=== PATIENT | female | born 1985 | race American Indian/Alaskan Native ===

== ENCOUNTER 2016-06-28 23:18 | Emergency (ER) | payer MEDICAID ==
[2016-06-29] MEDS ORDERED: MOTRIN PO ONE (00:15)
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
[2016-06-29 03:51] VITALS: BP 127/69
== END 2016-06-29 03:00 | disposition home or self-care (01) ==
LOC: ED 23:18
DX: S46.812A Strain of other muscles, fascia and tendons at shoulder and upper arm level, left arm, initial encounter (principal); V49.59XA Passenger injured in collision with other motor vehicles in traffic accident, initial encounter; W22.12XA Striking against or struck by front passenger side automobile airbag, initial encounter; Y93.89 Activity, other specified; Y99.8 Other external cause status; Y92.488 Other paved roadways as the place of occurrence of the external cause
CPT/HCPCS: 99283

== ENCOUNTER 2017-05-23 14:00 | Emergency (ER) | payer MEDICAID ==
[2017-05-23] MEDS ORDERED: XYLOCAINE 1% 20 mL INFILTRATI ONE (16:53)
--- NOTE | 2017-05-23 17:16 | Emergency Department Report ---
- General Chief complaint: Wound/Laceration Stated complaint: CYST Time Seen by Provider: 05/23/17 16:45 Source: patient Mode of arrival: Ambulatory Limitations: No Limitations - History of Present Illness Initial comments: This is a 31-year-old female nontoxic, well nourished in appearance, no acute signs of distress presents to the ED with c/o of right bartholin cyst x3 days. Patient denies any pus or drainage. Patient denies any fever, chills, headache, nausea, vomiting, chest pain, shortness of breathe, abdominal pain. Patient denies any allergies or PMH. MD complaint: abscess/boil -: days(s) (3) Severity: mild Severity scale (0 -10): 8 Quality: aching Consistency: constant Improves with: none Worsens with: none Context: none Associated symptoms: denies other symptoms Treatments Prior to Arrival: none - Related Data Previous Rx's Medication Instructions Recorded Last Taken Type Ibuprofen [Motrin] 600 mg PO Q8H PRN #30 tablet 06/29/16 Unknown Rx Sulfamethoxazole/Trimethoprim 1 each PO BID #14 tablet 05/23/17 Unknown Rx [Bactrim DS TAB] traMADol [Ultram] 50 mg PO Q6HR PRN #15 tablet 05/23/17 Unknown Rx Allergies Allergy/AdvReac Type Severity Reaction Status Date / Time No Known Allergies Allergy Verified 05/23/17 14:31 Abscess Boil HPI - [facility] Chief Complaint: Wound/Laceration Stated Complaint: CYST Time Seen by Provider: 05/23/17 16:45 Home Medications: Previous Rx's Medication Instructions Recorded Last Taken Type Ibuprofen [Motrin] 600 mg PO Q8H PRN #30 tablet 06/29/16 Unknown Rx Sulfamethoxazole/Trimethoprim 1 each PO BID #14 tablet 05/23/17 Unknown Rx [Bactrim DS TAB] traMADol [Ultram] 50 mg PO Q6HR PRN #15 tablet 05/23/17 Unknown Rx Allergies/Adverse Reactions: Allergies Allergy/AdvReac Type Severity Reaction Status Date / Time No Known Allergies Allergy Verified 05/23/17 14:31 ED Review of Systems ROS: Stated complaint: CYST Other details as noted in HPI Constitutional: denies: chills, fever Eyes: denies: eye pain, eye discharge, vision change ENT: denies: ear pain, throat pain Respiratory: denies: cough, shortness of breath, wheezing Cardiovascular: denies: chest pain, palpitations Endocrine: no symptoms reported Gastrointestinal: denies: abdominal pain, nausea, diarrhea Genitourinary: denies: urgency, dysuria, discharge Musculoskeletal: denies: back pain, joint swelling, arthralgia Skin: denies: rash, lesions Neurological: denies: headache, weakness, paresthesias Psychiatric: denies: anxiety, depression Hematological/Lymphatic: denies: easy bleeding, easy bruising ED Past Medical Hx - Past Medical History Previous Medical History?: No - Surgical History Past Surgical History?: No Additional Surgical History: c section - Social History Smoking Status: Never Smoker Substance Use Type: None - Medications Home Medications: Home Medications Medication Instructions Recorded Confirmed Last Taken Type Ibuprofen [Motrin] 600 mg PO Q8H PRN #30 tablet 06/29/16 Unknown Rx Sulfamethoxazole/Trimethoprim 1 each PO BID #14 tablet 05/23/17 Unknown Rx [Bactrim DS TAB] traMADol [Ultram] 50 mg PO Q6HR PRN #15 tablet 05/23/17 Unknown Rx ED Physical Exam - General Limitations: No Limitations General appearance: alert, in no apparent distress - Head Head exam: Present: atraumatic, normocephalic - Eye Eye exam: Present: normal appearance Pupils: Present: normal accommodation - ENT ENT exam: Present: normal exam, mucous membranes moist - Neck Neck exam: Present: normal inspection - Respiratory Respiratory exam: Present: normal lung sounds bilaterally. Absent: respiratory distress, wheezes, rales, rhonchi, stridor - Cardiovascular Cardiovascular Exam: Present: regular rate, normal rhythm, normal heart sounds. Absent: irregular rhythm, systolic murmur, diastolic murmur, rubs, gallop - GI/Abdominal GI/Abdominal exam: Present: soft, normal bowel sounds - External exam: Present: normal external exam, other (insulating machine operator Lino present during exam. Right labia majora swelling with induration or fluctuance. Tender to touch.). Absent: erythema, swelling, lesions, lacerations, ecchymosis , bleeding - Extremities Exam Extremities exam: Present: normal inspection, full ROM - Back Exam Back exam: Present: normal inspection, full ROM - Neurological Exam Neurological exam: Present: alert, oriented X3, normal gait - Psychiatric Psychiatric exam: Present: normal affect, normal mood - Skin Skin exam: Present: warm, dry, intact, normal color. Absent: rash ED Course Vital Signs 05/23/17 14:31 Temperature 98.7 F Pulse Rate 94 H Respiratory 16 Rate Blood Pressure 126/79 O2 Sat by Pulse 98 Oximetry - Reevaluation(s) Reevaluation #1: 05/23/17 17:47 Patient is speaking in full sentences with no signs of distress noted. - I & D Right Vagina Type of Procedure: Complex Site: right labia majora Blade Size: 11 I & D Procedure: betadine prep, sterile drapes applied Progress: Prior to the procedure, I tested the bartholin cyst catheter with 5 ml of normal saline. Under sterile field, I used Betadine to cleanse the area. I then used 1% lidocaine plain with 25-gauge 5/8 needle to inject area for anesthetic purposes. Total volume injected 3 mL. I then used an 11 blade to make a 1 cm incision. About 5 mL's of purulent drainage has been noted. I then used a hemostat to break the abscess formation. I then used sterile 0.9% normal saline flush to flush the wound with total volume of 40 mL used. I then put a Bartholin catheter to the incision. I injected 5 ml of normal saline to the bartholin catherter. Bleeding is under control. Patient tolerated the procedure well with no signs of distress noted. ED Medical Decision Making - Medical Decision Making This is a 31-year-old female that presents with Bartholin's cyst. Patient is stable and was examined by me. The Bartholin's cyst has been incised and a pleural catheter has been placed. Patient be discharged with Bactrim. Patient was referred to follow up with a jointer submarine cable for the Bartholin's catheter. Patient was educated in proper wound care. Patient received Ultram at discharge and was instructed not to operate any machinery due to drowsiness. Patient was referred to Follow-up with a primary care doctor in 3-5 days or if symptoms worsen and continue return to emergency room as soon as possible. At time of discharge, the patient does not seem toxic or ill in appearance. No acute signs of distress noted. Patient agrees to discharge treatment plan of care. No further questions noted by the patient. Critical care attestation.: If time is entered above; I have spent that time in minutes in the direct care of this critically ill patient, excluding procedure time. ED Disposition Clinical Impression: Cyst of right Bartholin's gland Disposition: DC- TO HOME OR SELFCARE Is pt being admited?: No Does the pt Need Aspirin: No Condition: Stable Instructions: Bartholin Cyst (ED), Incision and Drainage (ED), Tramadol (By mouth), Sulfamethoxazole/Trimethoprim (By mouth) Additional Instructions: Follow-up with a primary care doctor in 3-5 days or if symptoms worsen and continue return to emergency room as soon as possible. Prescriptions: Sulfamethoxazole/Trimethoprim [Bactrim DS TAB] 1 each PO BID #14 tablet traMADol [Ultram] 50 mg PO Q6HR PRN #15 tablet PRN Reason: Pain Referrals: VALORIE SUN MD [Primary Care Provider] - 3-5 Days PRIMARY CARE, [Referring] - 3-5 Days [facility] [Outside] - 3-5 Days [facility] [Outside] - 3-5 Days Forms: Work/School Release Form(ED)
[2017-05-23 18:26] VITALS: BP 122/74
== END 2017-05-23 18:26 | disposition home or self-care (01) ==
LOC: ED 14:00
DX: N75.0 Cyst of Bartholin's gland (principal)
CPT/HCPCS: 99282

== ENCOUNTER 2018-08-16 12:38 | Emergency (ER) | payer MEDICAID, OTHER ==
--- NOTE | 2018-08-16 13:10 | Emergency Department Report ---
Blank Doc - Documentation Documentation: This is a 32-year-old female that presents with bartholin abscess. This initial assessment/diagnostic orders/clinical plan/treatment(s) is/are subject to change based on patient's health status, clinical progression and re- assessment by fellow clinical providers in the ED. Further treatment and workup at subsequent clinical providers discretion. Patient/guardians urged not to elope from the ED as their condition may be serious if not clinically assessed and managed. Initial orders include: 1- Patient sent to [facility] for further evaluation and treatment
[2018-08-16 13:11] VITALS: BP 117/74
--- NOTE | 2018-08-16 15:00 | Emergency Department Report ---
ED Female HPI - General Chief complaint: Urogenital-Female Stated complaint: CYST/VAGINAL AREA Time Seen by Provider: 08/16/18 13:05 Source: patient Mode of arrival: Ambulatory Limitations: No Limitations - History of Present Illness Initial comments: Patient is a 32-year-old female who presents to the emergency room with complaints of a Bartholin's cyst to the right side that began 2-1/2 weeks ago. She states it became more painful over the last 3 days. States she saw her FUEL CELL ENGINEER and was started on Bactrim and ibuprofen which she finished yesterday but did not resolve her symptoms. she denies any drainage or fever. does not report any other symptoms. last menstrual cycle August 07. No past medical history allergies to medications. - Related Data Previous Rx's Medication Instructions Recorded Last Taken Type Ibuprofen [Motrin] 600 mg PO Q8H PRN #30 tablet 06/29/16 Unknown Rx Sulfamethoxazole/Trimethoprim 1 each PO BID #14 tablet 05/23/17 Unknown Rx [Bactrim DS TAB] traMADol [Ultram] 50 mg PO Q6HR PRN #15 tablet 05/23/17 Unknown Rx Allergies Allergy/AdvReac Type Severity Reaction Status Date / Time No Known Allergies Allergy Verified 05/23/17 14:31 ED Review of Systems ROS: Stated complaint: CYST/VAGINAL AREA Other details as noted in HPI Comment: All other systems reviewed and negative ED Past Medical Hx - Past Medical History Previous Medical History?: No - Surgical History Past Surgical History?: Yes Additional Surgical History: c section - Social History Smoking Status: Never Smoker Substance Use Type: None - Medications Home Medications: Home Medications Medication Instructions Recorded Confirmed Last Taken Type Ibuprofen [Motrin] 600 mg PO Q8H PRN #30 tablet 06/29/16 Unknown Rx Sulfamethoxazole/Trimethoprim 1 each PO BID #14 tablet 05/23/17 Unknown Rx [Bactrim DS TAB] traMADol [Ultram] 50 mg PO Q6HR PRN #15 tablet 05/23/17 Unknown Rx ED Physical Exam - General Limitations: No Limitations General appearance: alert, in no apparent distress - Head Head exam: Present: atraumatic, normocephalic - Eye Eye exam: Present: normal appearance, PERRL - ENT ENT exam: Present: mucous membranes moist - External exam: Present: swelling (present to the inside of the right labia with area of fluctuance, no erythema), other (social work faculty member: lamar ) - Neurological Exam Neurological exam: Present: alert, oriented X3 - Psychiatric Psychiatric exam: Present: normal affect, normal mood - Skin Skin exam: Present: warm, dry, intact ED Course Vital Signs 08/16/18 13:10 Temperature 98.7 F Pulse Rate 83 Respiratory 16 Rate Blood Pressure 117/74 O2 Sat by Pulse 97 Oximetry - I & D Right Vagina Type of Procedure: Simple Site: right labia bartholins cyst Blade Size: 11 I & D Procedure: betadine prep, sterile drapes applied Progress: 3.5 cm area of edema and fluctuance to the right labia where the bartholins duct is, area cleaned with betadine, sterile drapes applied, 3 cc of 2% lidocaine used, 0.5 cm incision made with a 11 blade, copious amounts of purulent drainage expressed, irrigated with 30 cc of saline, pt tolerated well, no complications, bleeding controlled ED Medical Decision Making - Medical Decision Making Patient is a 32-year-old female who presents to the emergency room with complaints of a Bartholin's cyst to the right side that began 2-1/2 weeks ago. She states it became more painful over the last 3 days. States she saw her FUEL CELL ENGINEER and was started on Bactrim and ibuprofen which she finished yesterday but did not resolve her symptoms. she denies any drainage or fever. does not report any other symptoms. last menstrual cycle August 07. No past medical history allergies to medications.on exam: edema present to the inside of the right labia with area of fluctuance, no erythema. I&D performed per procedure note with copious purulent drainage present and chaperoned by JEFFERY Sidhu. advised pt to please keep area clean and dry. May wash with soap and water and immediately dry. use a non-scented soap. Follow-up with your FUEL CELL ENGINEER in the next 2-3 days. Return to the emergency room for any new or worsening symptoms. Critical care attestation.: If time is entered above; I have spent that time in minutes in the direct care of this critically ill patient, excluding procedure time. ED Disposition Clinical Impression: Bartholin's cyst, Encounter for incision and drainage procedure Disposition: TO HOME OR SELFCARE Is pt being admited?: No Does the pt Need Aspirin: No Condition: Stable Instructions: Bartholin Cyst (ED), Incision and Drainage (ED) Additional Instructions: Please keep area clean and dry. May wash with soap and water and immediately dry. use a non-scented soap. Follow-up with your FUEL CELL ENGINEER in the next 2-3 days. Return to the emergency room for any new or worsening symptoms. Referrals: GRIFFIN ASHLEY MD [Primary Care Provider] - 2-3 Days your, [facility] [Other] - 2-3 Days Time of Disposition: 15:00 Print Language: DANISH
== END 2018-08-16 15:06 | disposition home or self-care (01) ==
LOC: ED 12:38
DX: N75.0 Cyst of Bartholin's gland (principal); Z79.1 Long term (current) use of non-steroidal anti-inflammatories (NSAID)